=== PATIENT | female | born 1945 | race Caucasian/White ===

== ENCOUNTER → 2021-02-10 10:25 | Outpatient (CLI) | payer MEDICARE, BC, SELFPAY ==
--- NOTE | ~2021-02-10 | DEXA_ITS ---
Bone Density Report Name: Elisha Aguirre Age: 76 Sex: Female Ethnicity: White Date of : 1945 Indication: postmenopausal; screening for osteoporosis; inflammatory bowel disease; Referring Provider: Juliana, eKvon Baxter Study: Bone densitometry was performed. Exam Date: February 10, 2021 Accession number: [id number] Bone Density: Region BMD T-score Z-score Classification AP Spine (L1-L4) 0.931 -1.1 1.3 Osteopenia Femoral Neck (Left) 0.812 -0.3 1.7 Normal Total Hip (Left) 0.951 0.1 1.8 Normal Femoral Neck (Right) 0.808 -0.4 1.7 Normal Total Hip (Right) 0.917 -0.2 1.5 Normal Total Hip Mean 0.934 -0.1 1.7 Normal World Health Organization criteria for BMD impression classify patients as: Normal (T-score at or above -1.0), Osteopenia (T-score between -1.0 and -2.5), or Osteoporosis (T-score at or below -2.5). 10-year Fracture Risk(1): Major Osteoporotic Fracture 8.1% Hip Fracture 0.8% Reported Risk Factors: [place] (), Neck BMD=0.808, BMI=27.8 (1) FRAX(R) Version 3.08. Fracture probability calculated for an untreated patient. Fracture probability may be lower if the patient has received treatment. Previous Exams: Region Exam Age BMD T-score BMD Change BMD Change Date g/cm2 vs Baseline vs Previous AP Spine(L1-L4) 02/10/2021 76 0.931 -1.1 -0.061* -0.019 03/23/2016 71 0.950 -0.9 -0.041* 0.010 03/16/2014 69 0.940 -1.0 -0.051* -0.013 09/12/2011 66 0.953 -0.9 -0.038* -0.038* 06/14/2009 64 0.991 -0.5 Total Hip(Left) 02/10/2021 76 0.951 0.1 -0.146* -0.102* 03/23/2016 71 1.053 0.9 -0.044* 0.032* 03/16/2014 69 1.021 0.7 -0.076* -0.020 09/12/2011 66 1.042 0.8 -0.055* -0.055* 06/14/2009 64 1.097 1.3 Total Hip(Right) 02/10/2021 76 0.917 -0.2 -0.158* -0.111* 03/23/2016 71 1.028 0.7 -0.047* 0.006 03/16/2014 69 1.022 0.7 -0.053* -0.026 09/12/2011 66 1.047 0.9 -0.027* -0.027* 06/14/2009 64 1.074 1.1 *Denotes significance at 95% confidence level, LSC for AP Spine = 0.022 g/cm2, LSC for Total Hip = 0.027 g/cm2 Clinical Information Provided by Patient: Has used the following medications: Vitamin D, ULCERATIVE COLITIS Has the following medical conditions: Inflammatory bowel diseases Patient maximum height was 63 Menopause Ag
== END ==
PROVIDERS: PCP Internal Medicine; Visit Provider Internal Medicine
DX: Z78.0 Asymptomatic menopausal state (principal); M85.88 Other specified disorders of bone density and structure, other site
CPT/HCPCS: 77080

== ENCOUNTER → 2023-05-21 11:04 | Outpatient (CLI) | payer MEDICARE, BC, SELFPAY ==
--- NOTE | ~2023-05-21 | DEXA_ITS ---
Bone Density Report Name: MAIN ENCINAS Age: 78 Sex: Female Ethnicity: White Date of : 1945 Indication: osteopenia; inflammatory bowel disease;postmenopausal Referring Provider: Juliana, Kevon aBxter Study: Bone densitometry was performed. Exam Date: May 21, 2023 Accession number: [id number] Bone Density: Region BMD T-score Z-score Classification AP Spine (L1-L4) 0.961 -0.8 1.7 Normal Femoral Neck (Left) 0.818 -0.3 1.9 Normal Total Hip (Left) 0.952 0.1 1.9 Normal Femoral Neck (Right) 0.805 -0.4 1.7 Normal Total Hip (Right) 0.951 0.1 1.9 Normal Total Hip Mean 0.952 0.1 1.9 Normal World Health Organization criteria for BMD impression classify patients as: Normal (T-score at or above -1.0), Osteopenia (T-score between -1.0 and -2.5), or Osteoporosis (T-score at or below -2.5). 10-year Fracture Risk: FRAX not reported because: All T-scores for Spine Total, Hip Total, Femoral Neck at or above -1.0 Previous Exams: Region Exam Age BMD T-score BMD Change BMD Change Date g/cm2 vs Baseline vs Previous AP Spine(L1-L4) 05/21/2023 78 0.961 -0.8 -0.030* 0.030* 02/10/2021 76 0.931 -1.1 -0.061* -0.019 03/23/2016 71 0.950 -0.9 -0.041* 0.010 03/16/2014 69 0.940 -1.0 -0.051* -0.013 09/12/2011 66 0.953 -0.9 -0.038* -0.038* 06/14/2009 64 0.991 -0.5 Total Hip(Left) 05/21/2023 78 0.952 0.1 -0.145* 0.001 02/10/2021 76 0.951 0.1 -0.146* -0.102* 03/23/2016 71 1.053 0.9 -0.044* 0.032* 03/16/2014 69 1.021 0.7 -0.076* -0.020 09/12/2011 66 1.042 0.8 -0.055* -0.055* 06/14/2009 64 1.097 1.3 Total Hip(Right) 05/21/2023 78 0.951 0.1 -0.123* 0.035* 02/10/2021 76 0.917 -0.2 -0.158* -0.111* 03/23/2016 71 1.028 0.7 -0.047* 0.006 03/16/2014 69 1.022 0.7 -0.053* -0.026 09/12/2011 66 1.047 0.9 -0.027* -0.027* 06/14/2009 64 1.074 1.1 *Denotes significance at 95% confidence level, LSC for AP Spine = 0.022 g/cm2, LSC for Total Hip = 0.027 g/cm2 Clinical Information Provided by Patient: Has used the following medications: Vitamin D Has the following medical conditions: Inflammatory bowel diseases Patient maximum height was 63 Menopause Age: 52 No regular weight bearing exercise Does not regul
== END ==
PROVIDERS: PCP Internal Medicine; Visit Provider Internal Medicine
DX: Z78.0 Asymptomatic menopausal state (principal)
CPT/HCPCS: 77080